=== PATIENT | female | born 1970 | race Caucasian/White ===

== ENCOUNTER 2018-04-18 15:10 | Emergency (ER) | payer OTHER ==
[~2018-04-18] VITALS: Ht 162.6 cm; Wt 88.0 kg
[2018-04-18 15:22] VITALS: BP_SYST 125
[2018-04-18] MEDS ORDERED: IBUPROFEN 600 MG TABLET PO ONE (16:30)
[2018-04-18 17:35] VITALS: BP_SYST 125
== END 2018-04-18 17:35 | disposition home or self-care (01) ==
LOC: SED 15:10
DX: S62.615A Displaced fracture of proximal phalanx of left ring finger, initial encounter for closed fracture (principal); W01.198A Fall on same level from slipping, tripping and stumbling with subsequent striking against other object, initial encounter; Y93.89 Activity, other specified; Y92.89 Other specified places as the place of occurrence of the external cause; Y99.8 Other external cause status
CPT/HCPCS: 73140-TC; 99284

== ENCOUNTER 2021-03-21 09:41 | Emergency (ER) | payer OTHER ==
[~2021-03-21] VITALS: Ht 160 cm; Wt 72.6 kg
[2021-03-21 09:41] VITALS: BP_SYST 128
[2021-03-21 10:19] LABS: BASOPHILS # (AUTO) 0.1 K/uL (0.0-0.2); BASOPHILS % (AUTO) 0.7 % (0.0-2.0); EOSINOPHILS # (AUTO) 0.1 K/uL (0.0-0.4); EOSINOPHILS % (AUTO) 0.4 % (0.0-4.0); HEMATOCRIT 43.5 % (36-48); HEMOGLOBIN 14.9 g/dL (12.0-16.0); LYMPHOCYTES # (AUTO) 2.5 K/uL (1.0-5.5); LYMPHOCYTES % (AUTO) 20.1 % (20.5-51.5); MEAN CORPUSCULAR HEMOGLOBIN 29 pg (27-31); MEAN CORPUSCULAR HGB CONC 34 % (32-36); MEAN CORPUSCULAR VOLUME 85 fL (79.0-98.0); MONOCYTES # (AUTO) 0.7 K/uL (0.0-1.0); MONOCYTES % (AUTO) 5.3 % (1.7-9.3); NEUTROPHILS # (AUTO) 9.2 K/uL (1.8-7.7); NEUTROPHILS % (AUTO) 73.5 % (40.0-70.0); PLATELET COUNT (AUTO) 305 K/uL (130-430); RED BLOOD CELL COUNT(AUTO) 5.14 MIL/uL (4.2-6.2); RED CELL DISTRIBUTION WIDTH 13.5 % (9.0-15.0); WHITE BLOOD COUNT (AUTO) 12.5 K/uL (4.8-10.8)
[2021-03-21 10:29] LABS: BILIRUBIN,URINE 1+ (NEGATIVE); BLOOD, URINE 3+ (NEGATIVE); CLARITY/URINE SL CLOUDY (CLEAR); COLOR,URINE YELLOW (YELLOW); GLUCOSE,URINE NEGATIVE (NEGATIVE); KETONES,URINE 2+ (NEGATIVE); LEUKOCYTE ESTERASE ,URINE TRACE (NEGATIVE); NITRITE, URINE NEGATIVE (NEGATIVE); PH,URINE 5.5 (5.0-8.0); PROTEIN URINE 1+ (NEGATIVE); UROBILINOGEN,URINE 0.2 (0.2-1.0)
[2021-03-21 10:30] LABS: CALCIUM 8.4 mg/dL (8.4-11.0); CREATININE 0.72 mg/dL (0.55-1.30); POTASSIUM 3.8 mmol/L (3.5-5.1)
[2021-03-21 10:34] LABS: PROTHROMBIN TIME 10.6 SECS (9.5-12.5)
[2021-03-21 10:35] LABS: C-REACTIVE PROTEIN QUANT 0.6 mg/dL (0-0.5); TOTAL BILIRUBIN 0.7 mg/dL (0.0-1.0)
[2021-03-21 10:57] LABS: BACTERIA,URINE RARE /HPF (None Seen); MUCUS,URINE 2+ /LPF (None Seen)
[2021-03-21] MEDS ORDERED: IBUP-1969 PO (11:32)
[2021-03-21] MEDS ORDERED: HYDR-3917 PO (11:32)
[2021-03-21 11:50] VITALS: BP_SYST 103
== END 2021-03-21 11:51 | disposition home or self-care (01) ==
LOC: SED 09:41
DX: R10.30 Lower abdominal pain, unspecified (principal)
CPT/HCPCS: 36415; 76376; 80053; 81000; 81025; 82150; 83605; 83690; 84703; 85025; 85610-TC; 85730-TC; 86140; 99284